=== PATIENT | male | born 1985 | race African-American/Black ===

== ENCOUNTER 2016-08-07 10:51 | Emergency (ER) | payer SELFPAY ==
[2016-08-07 11:07] VITALS: TEMP 98.6; BMI 24.3
[2016-08-07] MEDS ORDERED: ONDANSETRON HCL 4 MG/2 ML VIAL IV ONE (11:20)
[2016-08-07] MEDS ORDERED: SODIUM CHLORIDE 0.9% 3 ML FLUSH FLUSH PRN (11:20)
[2016-08-07] MEDS ORDERED: HYDROmorphone 1 MG INJECTION IV ONE (11:20)
--- NOTE | 2016-08-07 11:23 | EDPRACDOC ---
- General Information Information Source: Patient Mode Of Arrival: Car - History of Present Illness Onset: yesterday Pain Location: Reports: Epigastric Pain Context: Reports: Spontaneous Pain Severity: Moderate Pain Quality: Reports: Aching, Burning, Sharp, Stabbing Pain Radiation: Reports: No Radiation Modifying Factors: improves with: Position, Movement Associated Signs & Symptoms: Reports: Nausea, Vomiting Oral Intake: Decreased Urinary Output: Normal <Jessica Blair - Last Filed: 08/07/16 13:41> <Jennifer Khan - Last Filed: 08/07/16 14:04> - General Information Chief Complaint: Nausea,Vomiting,Diarrhea Stated Complaint: HYPERGLYCEMIA/VOMITING Time Seen by Provider: 08/07/16 11:14 Home Medications: Home Medications Metoclopramide HCl 10 mg PO ACHS 02/08/16 Pantoprazole Sodium [Protonix] 40 mg PO BID 02/08/16 Insulin Detemir [Levemir] 40 units SQ 0800 #1 pen 05/29/16 Insulin Regular, Human [Humulin R] See Protocol SQ AC #1 vial 06/21/16 Lisinopril [Zestril] 5 mg PO DAILY #30 tablet 06/21/16 Ondansetron [Zofran Odt] 4 mg PO Q6H #20 tab.rapdis 08/07/16 Ranitidine HCl [Zantac] 300 mg PO TID #30 tablet 08/07/16 Warfarin Sodium [Coumadin] 10 mg PO .DAILY@1800 08/07/16 Allergies/Adverse Reactions: Allergies Allergy/AdvReac Type Severity Reaction Status Date / Time lactose Allergy Unknown Nausea/Vomi Verified 08/07/16 11:04 ting penicillin Allergy Unknown Unknown Verified 08/07/16 11:04 - History of Present Illness HPI: PT PRESENTS TO ED WITH N/V UPPER ABD PAIN PT STATES HE IS IDDM AND GLUCOSE HAS BEEN RUNNING HIGHER THAN NORMAL (200-300). 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 (Jessica Blair) ED Past Medical History - History Reviewed Yes Nurses notes reviewed and agree except as marked Travel Outside of [place] in the Last 3 Months?: No - Patient Medical History Respiratory History: Reports: Cough, Pneumonia GI/ History: Reports: Kidney Stones, Gastroesophageal Reflux Musculoskeletal History: Psychological History: Reports: Depression, Anxiety (PTSD). Denies: Substance Use Disorder Systemic History: Reports: Diabetes (Type 1 X 13 YEARS) Surgical History: Reports: Cholecystectomy, Other (Left lung lobectomy due to pneumonia 2004.) - Family Medical History Reports: Hypertension (MOTHER), Diabetes (brother). Denies: Cancer, Stroke, Cardiac Disorders - Social Medical History Smoking Status: Former smoker Social History: Denies: Substance Use Disorder ETOH: None Substance Abuse: None Lives With: Other Lives In: Home <Jessica Blair - Last Filed: 08/07/16 13:41> EDM Review of Systems - Review of Systems ROS Negative Except as Marked: Yes All systems reviewed and were negative except as marked Constitutional: Weakness. negative: Chills, Fever, Fatigue, Loss of Appetite Eyes: No Symptoms Reported. negative: Redness, Blurred Vision, Double Vision, Discharge, Pain, Light Sensitive, Photophobia Ears: No Symptoms Reported. negative: Pain, Hearing Loss, Drainage, Ear Pulling Throat: No Symptoms Reported. negative: Pain, Swelling Nose: No Symptoms Reported. negative: Congestion, Bleeding, Discharge, Injection, Swelling, Deformity, Ecchymosis, Tender, Abrasion, Laceration Mouth: Dry Mouth. negative: Pain, Drooling Respiratory: No Symptoms Reported. negative: Cough, Brassy Cough, Barky Cough, Shortness of Breath, Wheezing, Hemoptysis Cardiovascular: No Symptoms Reported. negative: Chest Pain, Palpitations, Syncope, Edema, Orthopnea, PND, Skin Mottling, Cyanosis Gastrointestinal: Nausea, Pain, Vomiting. negative: Constipation, Diarrhea, Formula Intolerance, Melena Genitourinary: No Symptoms Reported. negative: Dysuria, Hematuria, Frequency, Discharge, Bleeding, Testicular Pain, Neurological: No Symptoms Reported. negative: Headache, Dizziness, Seizure, Numbness, Weakness, Speech Difficulty, Gait Difficulty Musculoskeletal: No Symptoms Reported. negative: Neck, Chestwall, Ribs, Back, Shoulder, Arm, Elbow, Forearm, Wrist, Hand, Pelvis, Hip, Femur, Knee, Leg, Ankle , Foot Integumentary: No Symptoms Reported. negative: Itching, Rash, Bruising, Wound Allergic/Immunologic: No Symptoms Reported. negative: Hives, Itching Hematologic: No Symptoms Reported. negative: Lymphadenopathy, Easy Bruising, Easy Bleeding Endocrine: No Symptoms Reported. negative: Weight Gain, Weight Loss Psychiatric: No Symptoms Reported. negative: Anxiety, Depression, Hallucinations, Insomnia, Suicidal <Jessica Blair - Last Filed: 08/07/16 13:41> - Physical Exam Constitutional: Alert (Awake), Other (UNCOMFORTABLE) Oriented to: Time, Person, Place - HEENT Head: Normal ( normocephalic) Eye Exam: Normal (PERRL, EOMI, Sclera white) Oropharynx: Membranes Dry Tympanic Membrane: Normal ENT EAC: Normal TMJ: Normal Nose: No Symptoms Reported (septum midline) Neck: Normal (FROM, trachea at midline) - Respiratory/Cardiovascular Respiratory: Normal - CTA (BBS clear to auscultation without adventitious sounds ) Cardiovascular: Normal (RRR without murmur, gallop or rub) - GI Auscultation: Normal (NABS) Palpation: Normal (Soft,No rebound or guarding, non distended) Tenderness: Diffuse, Mild Sanchez's Sign: Negative - Bladder: Normal - Musculoskeletal Back: Normal (Non-Tender) Extremities: Normal (Normal tone, Pulses 2+ No cyanosis or edema, FROM) - Integumentary Skin: Normal, Warm, Dry Lymphatics: Normal (no adenopathy) - Neurologic Memory Impaired: Normal Motor Function: Normal (Normal tone, Pulses 2+ No cyanosis or edema, FROM) Cranial Nerve: Normal (CN II-X11 intact sensation, strength 5/5) Cerebellar: Normal Mood Description: Normal Perception: Normal <Jessica Blair - Last Filed: 08/07/16 13:41> - Differential Diagnosis Gastroenteritis, Pancreatitis, UTI, Other (DKA, HYPERGLYCEMIA, DEHYDRATION) - Re-evaluation Re-evaluation 1 Re-evaluation Time: 13:41 (PT STATES FEELING SOME BETTER BUT HAVING UPPER ABD AND CHEST ACHY WITH BURNING IN THROAT. ) - Results 08/07/16 11:50 08/07/16 12:20 <Jessica Blair - Last Filed: 08/07/16 13:41> - Re-evaluation Re-evaluation 2 Re-evaluation Time: 14:03 (SEEN AND AGREE. ABD EXAM BENIGN.) - Results 08/07/16 11:50 08/07/16 12:20 <Jennifer Khan - Last Filed: 08/07/16 14:04> - Results WBC 5.7 xk/uL (3.8-10.8) 08/07/16 11:50 RBC 3.99 xM/uL (4.70-6.10) L 08/07/16 11:50 Hgb 11.5 g/dL (14.0-18.0) L 08/07/16 11:50 Hct 34.1 % (42-52) L 08/07/16 11:50 MCV 86 fL (80-94) 08/07/16 11:50 MCH 28.9 pg (27-32) 08/07/16 11:50 MCHC 33.8 g/dl (33-36) 08/07/16 11:50 RDW 17.5 % (11.5-14.5) H 08/07/16 11:50 Plt Count 247 xk/uL (130-400) 08/07/16 11:50 MPV 8.0 fL (7.4-10.4) 08/07/16 11:50 Neut % (Auto) 82.2 % (45-76) H 08/07/16 11:50 Lymph % (Auto) 13.6 % (17-44) L 08/07/16 11:50 [place] % (Auto) 2.6 % (3-10) L 08/07/16 11:50 Eos % (Auto) 0.9 % (0-5) 08/07/16 11:50 Baso % (Auto) 0.7 % (0-2) 08/07/16 11:50 Absolute Neuts (auto) 4.67 xk/uL (1.7-8.2) 08/07/16 11:50 Absolute Lymphs (auto) 0.74 xk/uL (0.65-4.75) 08/07/16 11:50 Puncture Site Right radial 08/07/16 12:38 pH 7.360 pH UNITS (7.35-7.45) 08/07/16 12:38 pCO2 41.0 mmHg (35-45) 08/07/16 12:38 pO2 86.0 mmHg (80-100) 08/07/16 12:38 HCO3 23.2 MMOL/L (22-26) 08/07/16 12:38 Total CO2 24.5 MMOL/L (23-27) 08/07/16 12:38 Base Excess -2.2 (+/- 2) L 08/07/16 12:38 VBG pH 7.33 pH UNITS (7.32-7.43) 08/07/16 11:50 Mixed VBG pCO2 49.0 mmHg (40-60) 08/07/16 11:50 Mixed VBG pO2 36.0 mmHg (30-55) 08/07/16 11:50 Mixed VBG HCO3 25.8 MMOL/L (22-27) 08/07/16 11:50 Mixed VBG Total CO2 27.3 MMOL/L (23-27) H 08/07/16 11:50 Mixed VBG Base Excess -0.7 (+/- 2) 08/07/16 11:50 FiO2 % 21% 08/07/16 12:38 Specimen Drawn By Kasgl 08/07/16 12:38 Sodium 138 mEq/L (137-146) 08/07/16 12:20 Potassium 3.8 mEq/L (3.5-5.1) 08/07/16 12:20 Chloride 106 mEq/L (98-107) 08/07/16 12:20 Carbon Dioxide 22 mMOL/L (22-33) 08/07/16 12:20 Anion Gap 14 mEq/L (8-16) 08/07/16 12:20 BUN 21 MG/DL (9-20) H 08/07/16 12:20 Creatinine 0.90 MG/DL (0.66-1.25) 08/07/16 12:20 Estimated GFR (MDRD) > 60 mL/min (>=60) 08/07/16 12:20 Glucose 208 MG/DL (70-99) H 08/07/16 12:20 POC Capillary Glucose 233 MG/DL (70-99) H 08/07/16 11:05 Calculated Osmolality 275 MOs/Kg (270-290) 08/07/16 12:20 Calcium 8.8 MG/DL (8.4-10.2) 08/07/16 12:20 Corrected Calcium 9.0 MG/DL (8.4-10.2) 08/07/16 12:20 Total Bilirubin 0.5 MG/DL (0.2-1.3) 08/07/16 12:20 AST 41 IU/L (17-59) 08/07/16 12:20 ALT 59 IU/L (21-72) 08/07/16 12:20 Alkaline Phosphatase 97 IU/L (38-126) 08/07/16 12:20 Total Protein 6.7 G/DL (6.3-8.2) 08/07/16 12:20 Albumin 3.8 G/DL (3.5-5.0) 08/07/16 12:20 Lipase 42 U/L (23-300) 08/07/16 12:20 Urine Color Yellow 08/07/16 11:04 Urine Clarity Hazy 08/07/16 11:04 Urine pH 6.0 (5.0-8.0) 08/07/16 11:04 Ur Specific Thomas 1.025 (1.003-1.035) 08/07/16 11:04 Urine Protein Neg (NEG/TRACE) 08/07/16 11:04 Urine Glucose (UA) 3+ (NEGATIVE) 08/07/16 11:04 Urine Ketones Trace (NEGATIVE) H 08/07/16 11:04 Urine Occult Blood Neg (NEG/TRACE) 08/07/16 11:04 Urine Nitrite Neg (NEGATIVE) 08/07/16 11:04 Urine Bilirubin Neg (NEGATIVE) 08/07/16 11:04 Urine Urobilinogen 0.2 MG/DL (0-1) 08/07/16 11:04 Ur Leukocyte Esterase Neg (NEGATIVE) 08/07/16 11:04 Urine RBC 0-2 (0-2) 08/07/16 11:04 Urine WBC 0-2 (0-2) 08/07/16 11:04 Ur Epithelial Cells Occ 08/07/16 11:04 Urine Mucus Occ (NEG/OCC) 08/07/16 11:04 Urine Opiates Screen Neg (NEGATIVE) 08/07/16 11:04 Ur Oxycodone Screen Neg (NEGATIVE) 08/07/16 11:04 Urine Methadone Screen Neg (NEGATIVE) 08/07/16 11:04 Ur Barbiturates Screen Neg (NEGATIVE) 08/07/16 11:04 Ur Tricyclics Screen Neg (NEGATIVE) 08/07/16 11:04 Ur Phencyclidine Scrn Neg (NEGATIVE) 08/07/16 11:04 Ur Amphetamines Screen Neg (NEGATIVE) 08/07/16 11:04 U Methamphetamines Scrn Neg (NEGATIVE) 08/07/16 11:04 Urine MDMA Screen Neg (NEGATIVE) 08/07/16 11:04 U Benzodiazepines Scrn Neg (NEGATIVE) 08/07/16 11:04 Urine Cocaine Screen Neg (NEGATIVE) 08/07/16 11:04 Ur THC Screen *positive* (NEGATIVE) H 08/07/16 11:04 Lab Results 08/07/16 08/07/16 08/07/16 12:38 12:20 11:50 WBC RBC Hgb Hct MCV MCH MCHC RDW Plt Count MPV Neut % (Auto) Lymph % (Auto) [place] % (Auto) Eos % (Auto) Baso % (Auto) Absolute Neuts (auto) Absolute Lymphs (auto) Puncture Site Right radial pH 7.360 pCO2 41.0 pO2 86.0 HCO3 23.2 Total CO2 24.5 Base Excess -2.2 L VBG pH 7.33 Mixed VBG pCO2 49.0 Mixed VBG pO2 36.0 Mixed VBG HCO3 25.8 Mixed VBG Total CO2 27.3 H Mixed VBG Base Excess -0.7 FiO2 % 21% Specimen Drawn By Kasgl Sodium 138 Potassium 3.8 Chloride 106 Carbon Dioxide 22 Anion Gap 14 BUN 21 H Creatinine 0.90 Estimated GFR (MDRD) > 60 Glucose 208 H POC Capillary Glucose Calculated Osmolality 275 Calcium 8.8 Corrected Calcium 9.0 Total Bilirubin 0.5 AST 41 ALT 59 Alkaline Phosphatase 97 Total Protein 6.7 Albumin 3.8 Lipase 42 Urine Color Urine Clarity Urine pH Ur Specific Thomas Urine Protein Urine Glucose (UA) Urine Ketones Urine Occult Blood Urine Nitrite Urine Bilirubin Urine Urobilinogen Ur Leukocyte Esterase Urine RBC Urine WBC Ur Epithelial Cells Urine Mucus Urine Opiates Screen Ur Oxycodone Screen Urine Methadone Screen Ur Barbiturates Screen Ur Tricyclics Screen Ur Phencyclidine Scrn Ur Amphetamines Screen U Methamphetamines Scrn Urine MDMA Screen U Benzodiazepines Scrn Urine Cocaine Screen Ur THC Screen 08/07/16 08/07/16 08/07/16 11:50 11:05 11:04 WBC 5.7 RBC 3.99 L Hgb 11.5 L Hct 34.1 L MCV 86 MCH 28.9 MCHC 33.8 RDW 17.5 H Plt Count 247 MPV 8.0 Neut % (Auto) 82.2 H Lymph % (Auto) 13.6 L [place] % (Auto) 2.6 L Eos % (Auto) 0.9 Baso % (Auto) 0.7 Absolute Neuts (auto) 4.67 Absolute Lymphs (auto) 0.74 Puncture Site pH pCO2 pO2 HCO3 Total CO2 Base Excess VBG pH Mixed VBG pCO2 Mixed VBG pO2 Mixed VBG HCO3 Mixed VBG Total CO2 Mixed VBG Base Excess FiO2 % Specimen Drawn By Sodium Potassium Chloride Carbon Dioxide Anion Gap BUN Creatinine Estimated GFR (MDRD) Glucose POC Capillary Glucose 233 H Calculated Osmolality Calcium Corrected Calcium Total Bilirubin AST ALT Alkaline Phosphatase Total Protein Albumin Lipase Urine Color Yellow Urine Clarity Hazy Urine pH 6.0 Ur Specific Thomas 1.025 Urine Protein Neg Urine Glucose (UA) 3+ Urine Ketones Trace H Urine Occult Blood Neg Urine Nitrite Neg Urine Bilirubin Neg Urine Urobilinogen 0.2 Ur Leukocyte Esterase Neg Urine RBC 0-2 Urine WBC 0-2 Ur Epithelial Cells Occ Urine Mucus Occ Urine Opiates Screen Ur Oxycodone Screen Urine Methadone Screen Ur Barbiturates Screen Ur Tricyclics Screen Ur Phencyclidine Scrn Ur Amphetamines Screen U Methamphetamines Scrn Urine MDMA Screen U Benzodiazepines Scrn Urine Cocaine Screen Ur THC Screen 08/07/16 11:04 WBC RBC Hgb Hct MCV MCH MCHC RDW Plt Count MPV Neut % (Auto) Lymph % (Auto) [place] % (Auto) Eos % (Auto) Baso % (Auto) Absolute Neuts (auto) Absolute Lymphs (auto) Puncture Site pH pCO2 pO2 HCO3 Total CO2 Base Excess VBG pH Mixed VBG pCO2 Mixed VBG pO2 Mixed VBG HCO3 Mixed VBG Total CO2 Mixed VBG Base Excess FiO2 % Specimen Drawn By Sodium Potassium Chloride Carbon Dioxide Anion Gap BUN Creatinine Estimated GFR (MDRD) Glucose POC Capillary Glucose Calculated Osmolality Calcium Corrected Calcium Total Bilirubin AST ALT Alkaline Phosphatase Total Protein Albumin Lipase Urine Color Urine Clarity Urine pH Ur Specific Thomas Urine Protein Urine Glucose (UA) Urine Ketones Urine Occult Blood Urine Nitrite Urine Bilirubin Urine Urobilinogen Ur Leukocyte Esterase Urine RBC Urine WBC Ur Epithelial Cells Urine Mucus Urine Opiates Screen Neg Ur Oxycodone Screen Neg Urine Methadone Screen Neg Ur Barbiturates Screen Neg Ur Tricyclics Screen Neg Ur Phencyclidine Scrn Neg Ur Amphetamines Screen Neg U Methamphetamines Scrn Neg Urine MDMA Screen Neg U Benzodiazepines Scrn Neg Urine Cocaine Screen Neg Ur THC Screen *positive* H (Jessica Blair) (Jennifer Khan) - Additional Information NO SIGNS OF DKA AT THIS TIME. ABD EXAM #2 NTND [id number]. (Jessica Blair) Decision Time to Discharge: 13:43 - Departure Disposition: Home Education/Counseling Given To: Patient Education/Counseling Given Regarding: Diagnosis, Treatment, Prognosis, Follow Up <Jessica Blair - Last Filed: 08/07/16 13:41> <Jennifer Khan - Last Filed: 08/07/16 14:04> - Departure Condition: Stable Final Diagnosis: Nausea and vomiting Gastritis Qualifiers: Gastritis type: unspecified gastritis Chronicity: unspecified Gastritis bleeding: presence of bleeding unspecified Qualified Code(s): K29.70 - Gastritis , unspecified, without bleeding Instructions: Acute Nausea and Vomiting (ED), Gastritis (ED) Referrals: Mack Billings MD [Primary Care Provider] - One Week Eligio Scott MD [Staff Physician] - One Week Prescriptions: Ondansetron [Zofran Odt] 4 mg PO Q6H #20 tab.rapdis Ranitidine HCl [Zantac] 300 mg PO TID #30 tablet Additional Instructions: FOLLOW UP WE DISCUSSED WITH GASTROENTEROLOGY. RETURN FOR WORSE OR DIFFERENT SYMPTOMS.
[2016-08-07 11:31] LABS: ALL NEG? NO
[2016-08-07 11:37] LABS: RBC/URINE 0-2 (0-2); WBC/URINE 0-2 (0-2)
[2016-08-07 11:39] LABS: LEUKOCYTES/URINE NEG (NEGATIVE); NITRITE/URINE NEG (NEGATIVE); URINE OCCULT BLOOD NEG (NEG/TRACE)
[2016-08-07 11:41] LABS: MDMA* NEG (NEGATIVE); METHAMPHETAMINES NEG (NEGATIVE); OXYCODONE NEG (NEGATIVE)
[2016-08-07] MEDS: NS 1,000 ML IV SCH ×2 (11:56→13:10)
[2016-08-07 12:01] LABS: VENOUS BEb -0.7 (+/- 2); VENOUS TCO2 27.3 MMOL/L (23-27)
[2016-08-07 12:09] LABS: AUTOMATED BASOPHIL 0.7 % (0-2); AUTOMATED EOSINOPHIL 0.9 % (0-5); AUTOMATED LYMPH 13.6 % (17-44); AUTOMATED MONOCYTE 2.6 % (3-10); AUTOMATED NEUTROPHIL 82.2 % (45-76)
[2016-08-07 12:43] LABS: ALLEN'S TEST PASS; BEb -2.2 (+/- 2); TCO2 24.5 MMOL/L (23-27)
[2016-08-07 12:44] LABS: ABG Draw Site Right Radial
[2016-08-07 12:55] LABS: BLOOD UREA NITROGEN 21 MG/DL (9-20); CALCIUM 8.8 MG/DL (8.4-10.2); CALCULATED OSMOLALITY 275 MOs/Kg (270-290); CHLORIDE 106 mEq/L (98-107); GLUCOSE 208 MG/DL (70-99); SODIUM LEVEL 138 mEq/L (137-146); TOTAL PROTEIN 6.7 G/DL (6.3-8.2)
[2016-08-07] MEDS ORDERED: GI COCKTAIL 30 ML DOSE PO ONE (13:33)
[2016-08-07 13:43] VITALS: BP 122/74
[2016-08-07 14:02] VITALS: PULSE 77
[2016-08-07] MEDS ORDERED: SODIUM CHLORIDE 0.9% 3 ML FLUSH FLUSH SCH (18:00)
== END 2016-08-07 14:00 | disposition home or self-care (01) ==
LOC: ED 10:51
DX: K29.70 Gastritis, unspecified, without bleeding (principal)
CPT/HCPCS: 36415; 36600; 80053; 80307; 81001; 82803; 82962; 83690; 85025; 96361; 96374; 96375; 99284; J1170; J2405; J3490